=== PATIENT | female | born 1950 | race Caucasian/White ===

== ENCOUNTER 2020-06-21 23:04 | Emergency (ER) | payer MEDICARE ==
[~2020-06-21] VITALS: Ht 167.6 cm; Wt 68.2 kg
[2020-06-22] MEDS ORDERED: HYDR28CR14 TOP (00:09)
[2020-06-22] MEDS ORDERED: diphenhydrAMINE 25mg capsule PO ONE (00:10)
[2020-06-22] MEDS ORDERED: LIDOcaine/PRILOcaine 5gm cream TP ONE (00:10)
[2020-06-22] MEDS ORDERED: acetaminophen 325mg tablet PO ONE (00:10)
[2020-06-22 00:19] VITALS: BP 169/89
== END 2020-06-22 00:20 | disposition home or self-care (01) ==
LOC: ER 23:05
DX: L29.9 Pruritus, unspecified (principal); Z60.2 Problems related to living alone; Z79.899 Other long term (current) drug therapy
CPT/HCPCS: 99284; Q0163